=== PATIENT | male | born 1955 | race Caucasian/White ===

== ENCOUNTER 2016-09-01 11:37 | Emergency (ER) | payer OTHER ==
[2016-09-01 12:53] LABS: BASOPHILS 0.2 % (0.0-2.0); EOSINOPHILS 1.5 % (0-7); HEMATOCRIT 41.2 % (42.0-54.0); HEMOGLOBIN 14.5 g/dL (13.5-17.5); IMMATURE GRANULOCYTES 0.1 % (0-5); LYMPHOCYTES 13.7 % (15-50); MCH 33.6 pg (26.0-34.0); MCHC 35.2 g/dL (31.0-37.0); MCV 95.6 fL (80.0-100.0); MEAN PLATELET VOLUME 9.8 fL (7.4-10.4); MONOCYTES 7.5 % (2-11); PLATELET COUNT 206 10x3/uL (130-400); RBC 4.31 10x6/uL (4.20-6.10); RDW 11.5 % (11.5-14.5); WBC 8.2 10x3/uL (4.8-10.8)
[2016-09-01 13:14] LABS: ALBUMIN 3.8 g/dL (3.4-5.0); ANION GAP 14.8 mmol/L (8-16); BILIRUBIN - TOTAL 0.53 mg/dL (0.2-1.3); CALCIUM 8.7 mg/dL (8.5-10.1); CARBON DIOXIDE 25.8 mmol/L (21.0-32.0); CREATININE - SERUM 1.2 mg/dL (0.6-1.3); POTASSIUM - SERUM 3.6 mmol/L (3.5-5.1)
[2016-09-01 14:59] LABS: APPEARANCE CLEAR (CLEAR); BILIRUBIN NEGATIVE (NEGATIVE); COLOR YELLOW (YELLOW); GLUCOSE NEGATIVE (NEGATIVE); KETONE NEGATIVE (NEGATIVE); LEUKOCYTE ESTERASE TRACE (NEGATIVE); NITRITE NEGATIVE (NEGATIVE); PROTEIN NEGATIVE (NEGATIVE); SPECIFIC GRAVITY 1.015 (1.005-1.020); UROBILINOGEN NORMAL (NORMAL)
[2016-09-01 15:03] LABS: BACTERIA FEW /hpf (NONE SEEN); EPITHELIAL CELLS 0-5 /hpf (0-5); MUCUS <1+ /lpf (NONE SEEN); RED CELLS - URINE NONE SEEN /hpf (0-5); WHITE CELLS - URINE 0-5 /hpf (0-5)
[2016-09-01 15:04] LABS: HYALINE CAST OCC /lpf (NONE SEEN)
== END 2016-09-01 15:52 | disposition home or self-care (01) ==
LOC: D.ER 11:37
PROVIDERS: Nurse Practitioner Family
DX: M54.5 Low back pain (principal); M54.32 Sciatica, left side; M62.830 Muscle spasm of back; S29.012A Strain of muscle and tendon of back wall of thorax, initial encounter; X58.XXXA Exposure to other specified factors, initial encounter; Y93.9 Activity, unspecified; Y92.019 Unspecified place in single-family (private) house as the place of occurrence of the external cause

== ENCOUNTER → 2017-07-09 15:52 | Outpatient (CLI) | payer OTHER | END | disposition home or self-care (01) | LOC: D.CT 15:52 | DX: J15.8 Pneumonia due to other specified bacteria (principal) ==

== ENCOUNTER → 2018-09-02 15:25 | Outpatient (CLI) | payer OTHER | END | disposition home or self-care (01) | LOC: D.CT 15:25 | PROVIDERS: ATTEND Family Medicine | DX: J18.1 Lobar pneumonia, unspecified organism (principal) ==

== ENCOUNTER → 2018-09-23 12:29 | Outpatient (CLI) | payer MEDICARE | END | disposition home or self-care (01) | LOC: D.RAD 12:29 | PROVIDERS: ATTEND Family Medicine | DX: K22.2 Esophageal obstruction (principal) ==

== ENCOUNTER → 2018-09-26 13:28 | Outpatient (CLI) | payer MEDICARE, OTHER ==
--- NOTE | 2018-09-28 14:39 | EC ---
PATIENT:PATRIA POLLOCK DATE OF SERVICE: 09/26/18 SEX: M MEDICAL RECORD: [id number] DATE OF : 51 LOCATION:[facility] AGE OF PATIENT: 63 ADMISSION DATE: 09/26/18 REFERRING PHYSICIAN: INTERPRETING PHYSICIAN: PHYLLIS FALK MD ECHOCARDIOGRAM REPORT ECHO CHARGES 4 ECHO COMPLETE Date: 09/26/18 CLINICAL DIAGNOSIS: DIZZINESS/BRADYCARDIA H/O HTN ECHOCARDIOGRAPHIC MEASUREMENTS (adult normal given) AC root (d.<3.7cm) 3.5 cm LV Septum d (<1.2 cm> 1.4 cm Valve Excursion 2.2 cm LV Septum (systole) 2.1 cm Left Atria (s.<4.0cm> 4.7 cm LVPW d(<1.2cm) 1.4 cm RV (d.<2.3cm) 3.0 cm LVPW (sytole) 2.1 cm LV diastole(<5.6CM) 6.0 cm MV E-F(>70mm/sec) cm LV systole 3.8 cm LVOT Diameter 2.0 cm MV exc.(>10mm) cm Est.ejection fraction (50-75%) % DOPPLER: LVIT cm/sec A 47.0 cm/sec E 59.0 cm/sec LA cm/sec RVSP 31.2 mmHg LVOT 113 cm/sec AOP1/2T m/s Asc. Ao 140 cm/sec RVOT 49.0 cm/sec RA cm/sec PA 113 cm/sec AV Gradient Peak 7.9 mmHg AV Mean 4.2 mmHg AV Area 2.1 cm MV Gradient Peak 2.6 mmHg MV Mean 0.43 mmHg MV Area cm COMMENTS: OP - HC Customs Entry Clerk: Odette BOONEOE Manager Cleaning: 1 Dr. Falk TAPE# PACS Pericardial Effusion N DATE OF SERVICE: 09/26/2018 FINDINGS: 1. Left ventricular chamber size is mildly dilated. Left ventricular systolic function is preserved at 55%. 2. Left atrium is dilated at 4.7 cm. Right atrium and right ventricular chamber sizes are as well mildly dilated. 3. Valvular structures have normal structure and motion. 4. Doppler interrogation reveals [id number] aortic insufficiency, moderate mitral regurgitation, and mild tricuspid regurgitation. No other ECHOCARDIOGRAM REPORT [id number] PATRIA POLLOCK valvular insufficiency or stenosis. Pulmonary systolic pressure is estimated at 31 mmHg. 5. No evidence of pericardial effusion or left ventricular thrombus. TRANSINT:[id number] Voice Confirmation ID: [id number] DOCUMENT ID: [id number] PHYLLIS FALK MD at 1439 CC: [id number] DICTATION DATE: 09/26/18 1534 HOUSE CLEANER SUPERVISOR: 09/26/18 2252 DEP CLI 09/26/18 [place] [id number] [place] [address]
== END | disposition home or self-care (01) ==
LOC: D.HCCARDIO 13:28
PROVIDERS: ATTEND Internal Medicine Interventional Cardiology
DX: I10 Essential (primary) hypertension (principal)

== ENCOUNTER → 2018-11-22 08:15 | Day surgery (SDC) | payer MEDICARE ==
[2018-11-21 11:35] LABS: HEMATOCRIT 42.7 % (42.0-54.0); MCH 33.6 pg (26.0-34.0); MCHC 35.1 g/dL (31.0-37.0); MCV 95.7 fL (80.0-100.0); MEAN PLATELET VOLUME 10.4 fL (7.4-10.4); RBC 4.46 10x6/uL (4.20-6.10); RDW 12.4 % (11.5-14.5); WBC 5.7 10x3/uL (4.8-10.8)
[~2018-11-22 08:15] MED LIST: AVAPRO150 MG PO; BACTRIM 400-801 TAB PO; BAYER CHEWABLE81 MG PO; CARAFATE1 G PO; ZYRTEC10 MG PO
[2018-11-22 09:07] VITALS: BP 126/75; BMI 29.1
--- NOTE | 2018-11-22 12:23 | OP ---
PATIENT NAME: PATRIA POLLOCK MEDICAL RECORD: [id number] :51 LOCATION:.[facility] ADMISSION DATE: SURGEON: HONG NELSON MD DATE OF OPERATION: 11/22/2018 SURGEON: Hong Nelson MD ANESTHESIA: TIVA by Dario Wolfe CRNA DIAGNOSES: Elevated PSA of 4.37, bladder outlet obstruction. PROCEDURES: Cystoscopy, transrectal ultrasound, and prostate biopsy. FINDINGS: On cystoscopy, bilateral lateral lobe obstruction of the prostate and small median lobe. Heavily trabeculated bladder with cellules. No bladder tumors. On transrectal ultrasound, 75-gram prostate with intraprostatic stones. No hypoechoic areas. SPECIMEN: Prostate biopsy cores. BLOOD LOSS: Minimal. CLINICAL HISTORY: This is a 63-year-old male who was referred for an elevated PSA of 4.37 on 09/28/2018. His previous PSA was 2 years ago and it was in the 2 range. He does have some voiding symptoms including nocturia times 1 and slow urinary stream. He has some urgency without urge incontinence. His IPSS score is 13, quality of life score is 3, and postvoid residual is 0 mL. He comes today to have a prostate biopsy performed as well as cystoscopy to evaluate his prostatic urethra. He has no drug allergies. He was given Ancef on-call to the OR. DESCRIPTION OF PROCEDURE: The patient was given IV sedation. He was placed in lithotomy position and prepped and draped. A 17-Hebrew cystoscope with 30-degree lens was used for visualization. He has normal penile urethra. The prostatic urethra shows bilateral lateral lobe obstruction. There is a small median lobe present. Going into the bladder, the bladder was heavily trabeculated. There were no bladder tumors seen. Single ureteral orifices were seen on each side. The bladder was then emptied through the cystoscope sheath and the scope was removed. We then introduced the transrectal ultrasound probe. Prostate size measurements were obtained. He has a very large prostate of 75 grams estimated size. Intraprostatic stones were also seen. Sextant biopsies were obtained with at least 3 cores from each sextant. Once all the cores were obtained, the procedure was terminated. I will see the patient in follow up this Wednesday to review the pathology results with him. TRANSINT:[id number] Voice Confirmation ID: [id number] DOCUMENT ID: [id number] OPERATIVE REPORT [id number] PATRIA POLLOCK ROBERT S MD at 1223 CC: [id number] DICTATION DATE: 11/22/18 1142 ROUTER MACHINE OPERATOR: 11/22/18 1158 PRE [facility] [address] [place] [address]
--- NOTE | 2018-11-22 12:31 | NUR ---
1230 PT VOIDED MODERATE AMT. SCANT AMT OF BLOOD NOTED IN TOILET
--- NOTE | 2018-11-22 13:54 | NUR ---
1315 UP TO RESTROOM. UNABLE TO VOID. CONTINUES TO DRINK. Mariana Miller.NCarly 1345 VOIDED 200ML URINE WITHOUT DIFFICULTY. DRESSING. Mariana CHANG R.N.
--- NOTE | 2018-11-22 14:05 | NUR ---
1400 DRESSED, AWAKE & ALERT. GVIEN DISCHARGE INFORMATION INCLUDING: MED REC WITH NOTE TO HOLD ASA TILL TOMORROW, RTC APPT., [facility] D/C INSTRUCTIONS, & CYSTOSCOPY & PROSTATE BIOPSY D/C INSTRUCTIONS. PT & VOICED UNDERSTANDING. TO PRIVATE CAR PER WHEELCHAIR BY OPS NURSEANASTASIYA. HOME WITH KRISHNA RIVASSammie CHANG R.N.
== END | disposition home or self-care (01) ==
LOC: D.OPS 07:30 → D.PAN 08:10 → D.OPS 08:10 → D.PAN 08:30 → D.OPS 08:30 → D.PAN 08:50 → D.OPS 09:00
PROVIDERS: Anesthesiology; ATTEND Urology
DX: C61 Malignant neoplasm of prostate (principal); N41.1 Chronic prostatitis; N40.1 Benign prostatic hyperplasia with lower urinary tract symptoms; N13.8 Other obstructive and reflux uropathy; N32.89 Other specified disorders of bladder; N42.0 Calculus of prostate; Z01.812 Encounter for preprocedural laboratory examination

== ENCOUNTER 2018-12-29 07:50 | Day surgery (SDC) | payer MEDICARE ==
[2018-12-28 09:13] LABS: BASOPHILS 0.4 % (0-2); EOSINOPHILS 5.6 % (0-7); HEMATOCRIT 45.3 % (42.0-54.0); HEMOGLOBIN 16.1 g/dL (13.5-17.5); IMMATURE GRANULOCYTES 0.3 % (0-5); LYMPHOCYTES 27.9 % (15-50); MCH 33.9 pg (26.0-34.0); MCHC 35.5 g/dL (31.0-37.0); MCV 95.4 fL (80.0-100.0); MEAN PLATELET VOLUME 9.6 fL (7.4-10.4); NEUTROPHILS 50.8 % (40-80); PLATELET COUNT 200 10x3/uL (130-400); RBC 4.75 10x6/uL (4.20-6.10); RDW 12.3 % (11.5-14.5)
[2018-12-28 09:25] LABS: APTT 25.7 SECONDS (22.8-39.4); INR 0.98 (0.85-1.17); PROTIME 12.5 SECONDS (11.6-15.0)
[~2018-12-29] VITALS: Ht 182.9 cm; Wt 99.8 kg
[2018-12-29 08:23] VITALS: BP 121/70; Ht 182.9 cm; Wt 99.8 kg
--- NOTE | 2018-12-29 11:40 | NUR ---
REC'D FROM SURGERY. FAMILY AT BEDSIDE. RELATES FEELS IF HE COULD URINATE. JUICE BROUGHT TO PATIENT.
--- NOTE | 2018-12-29 11:50 | NUR ---
AMBULATED TO THE BATHROOM AND VOIDED WITHOUT DIFFICULTY.
--- NOTE | 2018-12-29 12:00 | NUR ---
FL DIET SERVED TO PATIENT.
--- NOTE | 2018-12-29 12:17 | OP ---
PATIENT NAME: PATRIA POLLOCK MEDICAL RECORD: [id number] :51 LOCATION:.[facility] ADMISSION DATE: SURGEON: HONG NELSON MD DATE OF OPERATION: 12/29/2018 SURGEON: Hong Nelson MD ANESTHESIA: TIVA by Arnaud Segal CRNA DIAGNOSES: Prostate cancer, stage T1c. A 75-gram prostate. IPSS score is 13. Quality of life score is 3. Postvoid residual is 0 mL. Bladder outlet obstruction. PROCEDURE: UroLift times 5 units deployed, 4 held. FINDINGS: Bilateral lateral lobe obstruction. Minimum median lobe. There are single ureteral orifices bilaterally. The bladder was trabeculated, but there were no bladder tumors seen. CLINICAL HISTORY: This is a 63-year-old male who was diagnosed with prostate cancer. He has [place] 3+3 grade I cancer in the right base. His Prolaris score is low and he is on observation. He does continue to have obstructive voiding symptoms. He comes today to have the UroLift procedure done. He is not allergic to any medications. He was given Ancef on-call to the OR. DESCRIPTION OF PROCEDURE: The patient was given IV sedation. He was then placed into lithotomy position and prepped and draped. UroLift scope was introduced. The findings are as outlined above. At 1.5 cm distal to the bladder neck, we placed at the anterolateral sulcus of the lateral lobes, one unit on each side. When I placed the unit on the left side, the first time it struck bone. I could not recover the unit and this unit was discarded. I had to fire a second unit in this location on the left anterolateral sulcus near the bladder neck and this one did hold. This opened up the prostatic urethra greatly. We then fired 2 more units at the anterolateral sulcus near the verumontanum. One unit was placed on each side without any incident. At the end of the procedure, the prostatic urethra was nicely opened. We left the bladder partly full for a voiding trial. I will see the patient in follow up in one month's time. TRANSINT:[id number] Voice Confirmation ID: [id number] DOCUMENT ID: [id number] HONG NELSON MD at 9373 CC: [id number] DICTATION DATE: 12/29/18 1525 BARREL BUILDER: 12/29/18 1213 REG [facility] [address] [place] [id number]
--- NOTE | 2018-12-29 12:45 | NUR ---
TOLERATED FL DIET. IV DC'D WITH CATHETER INTACT.
--- NOTE | 2018-12-29 13:00 | NUR ---
WRITTEN AND VERBAL DC INST. GIVEN TO PT. VERBALIZED UNDERSTANDING.
--- NOTE | 2018-12-29 13:20 | NUR ---
DC'D HOME WITH FAMILY VIA PRIVATE VEHICLE. STABLE AT TIME OF DC.
== END 2018-12-29 13:20 | disposition home or self-care (01) ==
LOC: D.OPS 07:50 → D.PAN 08:15 → D.OPS 09:30 → D.PAN 09:45 → D.OPS 10:00 → D.PAN 10:15 → D.OPS 10:15
PROVIDERS: Anesthesiology; ATTEND Urology
DX: N40.1 Benign prostatic hyperplasia with lower urinary tract symptoms (principal); N13.8 Other obstructive and reflux uropathy; N32.89 Other specified disorders of bladder; Z01.812 Encounter for preprocedural laboratory examination

== ENCOUNTER → 2019-02-08 08:20 | Outpatient (CLI) | payer MEDICARE ==
[2018-12-29 08:23] VITALS: BMI 29.9
== END | disposition home or self-care (01) ==
LOC: D.CT 08:20
PROVIDERS: ATTEND Internal Medicine Pulmonary Disease
DX: R93.89 Abnormal findings on diagnostic imaging of other specified body structures (principal)

== ENCOUNTER → 2019-03-08 09:13 | Outpatient (CLI) | payer MEDICARE ==
[2018-12-29 08:23] VITALS: BMI 29.9
== END | disposition home or self-care (01) ==
LOC: D.LAB 09:13
PROVIDERS: ATTEND Urology
DX: C61 Malignant neoplasm of prostate (principal)

== ENCOUNTER 2019-04-13 11:07 | Outpatient (CLI) | payer MEDICARE ==
[~2019-04-13] VITALS: Ht 182.9 cm; Wt 100.0 kg
--- NOTE | ~2019-04-13 | HEMODYNAMI ---
PATIENT:PATRIA POLLOCK MEDICAL RECORD: [id number] : 51 LOCATION:[place] [address] ADMISSION DATE: 04/13/19 Generatedon:04/13/201914:02 Patient name: PATRIA POLLOCK Patient #: [id number] SSN: [id number] : 1955 Date of study: 04/13/2019 Page: Of Hemodynamic Procedure Report Patient Data Patient Demographics First Name: PATRIA Gender: Male Last Name: PHILL : 1955 Middle Initial: JOHN Age: 63 year(s) Patient #: [id number] Race: Unknown SSN: [id number] Additional ID: [id number] Contact details [address]: [address] [place] [address] State: [place] City: [place] Zip code: [address] Past Medical History Allergies: No known allergies Admission Admission Data Admission Date: 04/13/2019 Admission Time: 13:40 Room #: [facility] Insurance Payor: Medicare Height (in.): 72 BSA: 2.22 (m2) Height (cm.): 182.88 BMI: 29.84 (kg/m2) Weight (lbs.): 220 Weight (kg.): 99.79 Procedure Procedure Types Cath Procedure Diagnostic Procedure PPM/ICD PPM Dual Implant Procedure Description Procedure Date Procedure Date: 04/13/2019 Procedure Start Time: 13:20 Procedure Staff Name Function Daniel Kc MD Performing Physician Ama Patterson RT Monitor Kamini Bianchi RN Nurse Charlette Rivera RT Scrub Hong Carlisle MD Assisting physician Procedure Data Cath Procedure Fluoroscopy Diagnostic fluoroscopy Total fluoroscopy Time: 0.5 time: 0.5 min min Diagnostic fluoroscopy Total fluoroscopy dose: 213 dose: 213 mGy mGy Estimated blood loss: 10 ml Procedure Complications No complications Procedure Medications Medication Administration Route Dosage 0.9% NaCl I.V. 100 ml/hr Oxygen etCO2 Nasal cannula 2 l/min Lidocaine 1% added to field 20 Ancef (1Gm/50ml NS) I.V.P.B 1 g Ancef Irrigation Topical 1 g (1gm/500ml NS) Bupivacaine 0.5% added to field 10 ml Versed I.V. 2 mg Fentanyl I.V. 100 mcg Hemodynamics Rest BSA: 2.22 (m2) O2 Consumption: Estimated: 301.92 (ml/min) O2 Consumption indexed : Estimated:136 (ml/min/m) Pre Cath Intra NCS Post Cath Vital Signs Time Heart Resp SPO2 etCO2 NIBP (mmHg) Rhythm Pain Sedation Rate (ipm) (%) (mmHg) Status Level (bpm) 12:56:25 53 17 96 28.7 149/76(110) SB 0 (11) 10(A) , No pain 13:01:24 56 24 97 18.9 Measuring SB 0 (11) 10(A) , No pain 13:01:32 56 25 97 28 145/79(102) SB 0 (11) 10(A) , No pain 13:05:48 49 19 98 29.5 139/72(103) SB 0 (11) 10(A) , No pain 13:09:50 57 14 96 14.4 127/79(101) SB 0 (11) 10(A) , No pain 13:13:58 50 17 98 20.4 137/76(100) SB 0 (11) 10(A) , No pain 13:18:12 49 16 98 34 128/68(93) SB 0 (11) 10(A) , No pain 13:22:21 49 22 95 31.8 128/71(92) SB 0 (11) 10(A) , No pain 13:27:21 50 18 97 32.5 Measuring SB 0 (11) 10(A) , No pain 13:28:40 50 18 96 31.8 123/83(104) SB 0 (11) 10(A) , No pain 13:33:31 53 17 97 33.3 127/70(83) SB 0 (11) 10(A) , No pain 13:38:30 49 14 98 33.3 Measuring SB 0 (11) 10(A) , No pain 13:38:45 48 14 98 33.3 130/73(94) SB 0 (11) 10(A) , No pain 13:42:50 79 15 99 31.8 133/84(110) SB 0 (11) 10(A) , No pain 13:46:58 59 15 98 31.8 133/81(97) Paced 0 (11) 10(A) , No pain 13:51:08 59 16 98 29.5 133/78(101) Paced 0 (11) 10(A) , No pain 13:55:18 59 16 98 30.2 133/80(99) Paced 0 (11) 10(A) , No pain Medications Time Medication Route Dose Verified Delivered Reason Notes Effectiv eness by by 12:55:25 0.9% NaCl I.V. 100 Daniel Mckenziea used for ml/hr [facility] Bianchi procedure MD SANTIAGO 12:55:31 Oxygen etCO2 2 Daniel Lindquistyla used for Nasal l/min [facility] Bian[facility] procedure cannula MD SANTIAGO 12:55:42 Lidocaine added 20ml Hong Pitts for local 1% to vial Breving Breving anesthetic field MD TAYLOR 12:55:54 Ancef I.V.P.B 1 g Hong Suárez used for (1Gm/50ml Breving Arias procedure NS) MD SANTIAGO 12:56:02 Ancef Topical 1 g Hong Pitts used for Irrigation Breving Breving procedure (1gm/500ml MD TAYLOR NS) 13:09:55 Bupivacaine added 10 ml Hong Pitts for local 0.5% to Breving Breving anesthetic field MD TAYLOR 13:19:14 Versed I.V. 2 mg Daniel Lindquistyla for [facility] Zach Bianchi sedation MD SANTIAGO 13:19:20 Fentanyl I.V. 100 Daniel Lindquistyla for mcg [facility] Zach Bianchi sedation MD SANTIAGOchiropractic doctor Log Time Note 12:28:49 Insurance Payor : Medicare 12:39:04 Procedure Status Elective Heart Cath (OP). 12:39:08 Kamini Bianchi RN sent for patient. Start room use. 12:39:10 Time tracking: Regular hours (M-F 7:00 - 5:00) 12:39:16 Plan of Care:Hemodynamics will remain stable., Cardiac rhythm will remain stable., Comfort level will be maintained., Respiratory function will remain adequate., Patient/ family verbilizes understanding of procedure., Procedure tolerated without complication., Recovers from procedure without complications.. 12:39:39 Patient received from Pre/Post Procedure Room to [facility] 3 Alert and oriented. Tansferred to table in Supine position. 12:41:54 Patient Height : 72 inches 12:41:58 Patient Weight : 220 lbs 12:42:05 H&P Date Dictated: 04/13/2019 Within 30 days and on chart.. 12:55:16 Vital chart was started 12:55:25 0.9% NaCl 100 ml/hr I.V. was administered by Kamini Bianchi RN; used for procedure; Verbal order read back and verified. 12:55:31 Oxygen 2 l/min etCO2 Nasal cannula was administered by Kamini Bianchi RN; used for procedure; Verbal order read back and verified. 12:55:42 Lidocaine 1% 20ml vial added to field was administered by Hong Carlisle MD; for local anesthetic; Verbal order read back and verified. 12:55:54 Ancef (1Gm/50ml NS) 1 g I.V.P.B was administered by Kamini Bianchi RN; used for procedure; Verbal order read back and verified. 12:56:02 Ancef Irrigation (1gm/500ml NS) 1 g Topical was administered by Hong Carlisle MD; used for procedure; Verbal order read back and verified. 13:05:08 Pre-op teaching completed and patient verbalized understanding. 13:05:11 Family in patients room. 13:05:13 Patient NPO since Midnight. 13:05:20 Patient allergic to No known allergies 13:05:24 Is the patient allergic to Iodine/contrast media? N/A. 13:05:27 Was the patient premedicated? Yes 13:05:28 Is patient on blood thinner?No 13:05:49 Patient diabetic? No. 13:05:52 Snore? Yes 13:05:53 Sleep apnea? No 13:05:58 Dentures? No ? 13:06:08 IV patent on arrival in left forearm with 0.9% NaCl at [facility]. 13:06:28 Lab results completed and on chart. 13:06:37 Left chest area was prepped with dura-prep and draped in sterile fashion 13:06:51 Alarms reviewed by R. N. 13:06:52 Sharps counted by scrub and verified by R.N. 13:06:56 Physician paged 13:08:24 Medtronic business process representative ALISSA BOONEOE present for procedure. 13:09:36 Pre sharps counted by scrub and verified by RN: Sutures: 14; Sponges: 5; Stick needles: 2; Skin needles: 2; Blade: 1; Cautery: 1 13:09:44 Grounding pad site Left thigh. 13:09:45 Grounding pad site free from injury. 13:09:55 Bupivacaine 0.5% 10 ml added to field was administered by Hong Carlisle MD; for local anesthetic; Verbal order read back and verified. 13:12:52 Medtronic 4574-45 PPM Lead opened to sterile field. 13:12:53 Medtronic 4074-52 PPM Lead opened to sterile field. 13:12:[address] Generator [id number] opened to sterile field. 13:12:54 Mepilex Dressing ([id number]) opened to sterile field. 13:12:55 3-0 Vicryl Multipack [id number] opened to sterile field. 13:12:56 3-0 Vicryl Single Pack [id number] opened to sterile field. 13:12:56 2-0 Ticron Multipack ([id number]) opened to sterile field. 13:12:56 Immobilizer Sling Medium opened to sterile field. 13:17:21 Physician arrived 13:17:22 --------ALL STOP TIME OUT------ 13:17:27 Final Timeout: patient, procedure, and site verified with staff and physician. All members of the team are in agreement. 13:17:43 Left chest site verified by team. 13:17:50 Fire Safety Assessment: A--An alcohol-based skin anteseptic being used preoperatively., C--Open oxygen or nitrous oxide is being used., D--An ESU, laser, or fiber-optic light is being used. 13:17:57 Physical assessment completed. ASA score P 3 - A patient with severe systemic disease as per Daniel Kc MD. 13:18:03 Sedation plan: IV Moderate Sedation Medication:Versed, Fentanyl 13:19:14 Versed 2 mg I.V. was administered by Kamini Bianchi RN; for sedation; Verbal order read back and verified. 13:19:20 Fentanyl 100 mcg I.V. was administered by Kamini Bianchi RN; for sedation; Verbal order read back and verified. 13:20:42 Lidocaine 1% w/epi was administered to left subclavicular area by Hong Carlisle MD . 13:20:45 Incision made to left subclavicular area. 13:22:49 Generator pocket made/opened. 13:29:09 Use device set COLT PPM 13:29:15 Cautery Pushbutton Pencil opened to sterile field. 13:29:22 Cautery Tip Mandarin Chinese Teacher opened to sterile field. 13:29:53 Left subclavian vein accessed with 9Fr Peel Away Sheath. 13:29:58 Ventricular lead inserted and advanced. 13:30:04 Left subclavian vein accessed with 7Fr Peel Away Sheath. 13:30:12 Atrial lead inserted and advanced. 13:30:15 Peel-a-way sheath was split and removed. 13:30:16 Peel-a-way sheath was split and removed. 13:30:26 Ventricular lead tested. 13:30:29 Atrial lead tested. 13:38:08 PPM Dual was attached to lead(s) and inserted into pocket. 13:38:13 PPM Dual was inserted subcutaneously to left chest. 13:38:23 Device pocket was irrigated with Ancef. 13:38:34 Ventricular lead attachment was completed with 2-0 ticron. 13:38:38 Atrial lead attachment was completed with 2-0 ticron. 13:38:39 Generator was sutured in place with 2-0 ticron. 13:39:07 Subcutaneous closure was completed with 3-0 vicryl plus. 13:39:13 Skin closure was completed with 3-0 vicryl plus. 13:41:30 Parameters-- Generator: Mode: aair=DDDR. Lower Rate: 60bpm. Upper Rate: 120bpm. 13:42:24 Parameters--Ventricular P/R Wave: 12mV. Current: .2mA; Threshold: .2V; Impedence: 1165OHMS. 13:42:45 Parameters--Atrial P/R Wave: 3.0mV. Current: .6mA; Threshold: .4V; Impedence: 603OHMS. 13:42:53 Lt Chest incision was dressed with Mepilex dressing. 13:42:54 PRESSURE DRESSING 13:53:33 Procedure ended.(Physican Out) 13:53:44 Fluoroscopy time 00.50 minutes. 13:53:49 Flurop Dose total: 213 13:53:49 Fluoroscopy dose: 213 mGy 13:53:53 Dose Area Product 2510 mGy/cm. 13:53:57 Sharps counted by scrub and verified by R.N. 13:54:23 Post sharps counted by scrub and verified by RN: Sutures: 14; Sponges: 5; Stick needles: 2; Skin needles: 2; Blade: 1; Cautery: 1 13:54:44 Post-op/insertion site Left Subclavian vein dressed using a Mepilex dressing. 13:54:48 Post Procedure Pulses reassessed and unchanged 13:55:23 Post-procedure physical assessment completed. ASA score P 3 - A patient with severe systemic disease as per Daniel Kc MD. 13:55:31 Post procedure rhythm: paced 13:55:35 Estimated blood loss: 10 ml 13:55:38 Post procedure instruction explained to patient.Patient verbalizes understanding. 13:56:02 Procedure and supply charges have been captured, reviewed, submitted and are correct. 13:56:21 Procedure Complication : No complications 13:57:13 Vital chart was stopped 13:57:16 Operative report dictated upon procedure completion. 13:57:17 See physician's report for complete and final results. 13:57:19 Report given to Med II. 13:57:24 Patient transfered to Med II with Bed. 13:57:29 End room use (Document Last) Device Usage Item Name Manufacture Quantity Catalog Hospital Part Current Minima l Lot# / Number Charge Number Stock Stock Serial# Code Medtronic Medtronic 1 4574-45 [id number] [id number] 5 4574-45 PPM [id number] Lead EXP .04-19-19 Medtronic Medtronic 1 4074-52 386497 [id number] 009915 5 4074-52 PPM [id number] Lead EXP 12/26/2020 Medtronic Medtronic 1 [id number] [id number] [id number] 5 FREYA XT [id number] Generator EXP [id number] .08/11/2020 Mepilex Cardinal 1 815571 723557 458929 [id number] 5 Dressing Health (619280) 3-0 Vicryl Ethicon 1 [id number] 432136 105364 [id number] 5 Multipack [id number] 3-0 Vicryl Ethicon 1 [id number] 697990 018938 268696 5 Single Pack [id number] 2-0 Ticron Ethicon 5 [id number] 688795 56231 591535 5 Multipack ([id number]) Immobilizer Cardinal 1 71-90015 932698 205986 781033 5 Sling [facility] Cautery Microtek 1 [id number] 491539 64742 843589 5 Push[employer] Pencil Cautery Tip Microtek 1 [id number] 759491 937308 635350 5 Mandarin Chinese TeacherProginet Inc. Signature Audit [place] Stage Time Signature Unsigned Intra-Procedure 04/13/2019 Ama Patterson 2:02:02 PM RT(R) [place] [id number] [place] [id number]
[2019-04-13] MEDS ORDERED: OMEPRAZOLE20 M1 PO (11:26)
[2019-04-13 11:41] VITALS: BP 136/80; BMI 29.9
[2019-04-13 12:30] LABS: CALC OSMOLALITY 280 mosm/kg (275-300); CALCIUM 8.5 mg/dL (8.5-10.1); CARBON DIOXIDE 25.1 mmol/L (21.0-32.0); CHLORIDE - SERUM 105 mmol/L (98-107); GLUCOSE 105 mg/dL (74-106); POTASSIUM - SERUM 3.9 mmol/L (3.5-5.1); SODIUM 139 mmol/L (136-145); UREA NITROGEN 20 mg/dL (7-18); eGFR NON AFRICAN AMERICAN 80 mL/min (90-120)
[2019-04-13 12:37] LABS: HEMATOCRIT 42.1 % (42.0-54.0); HEMOGLOBIN 14.7 g/dL (13.5-17.5); MCH 34.3 pg (26.0-34.0); MCHC 34.9 g/dL (31.0-37.0); MCV 98.4 fL (80.0-100.0); MEAN PLATELET VOLUME 10.3 fL (7.4-10.4); RBC 4.28 10x6/uL (4.20-6.10); WBC 7.9 10x3/uL (4.8-10.8)
[2019-04-13 12:44] LABS: APTT 28.1 SECONDS (22.8-39.4); INR 1.05 (0.85-1.17); PROTIME 13.2 SECONDS (11.6-15.0)
--- NOTE | 2019-04-13 14:27 | NUR ---
RECIVED FROM SENIOR [employer] NET DEVELOPER PER BED TO ROOM 2119. FAMILY AT SIDE. LT CHEST DRSG C/D/I. SLING TO LT ARM. PACED ON CM
[2019-04-13 15:00] VITALS: BP 136/80; Ht 182.9 cm; Wt 100.0 kg
--- NOTE | 2019-04-13 16:44 | NUR ---
WITHOUT CHANGES OR DISTRESS NOTED AT THIS TIME.
[2019-04-13 18:04] VITALS: BP 124/65
[2019-04-13 20:00] VITALS: BP 113/58
--- NOTE | 2019-04-13 20:00 | NUR ---
RECIEVED BEDSIDE REPORT. PT AOX4, VSS, NO S/S OF DISTRESS. SPOUSE @BEDSIDE. LEFT ARM SLING INTACT AND LEFT CHEST DRSNG C/D/I. PT DENIES ANY PAIN AT THIS TIME. PT DENIES ANY FURTHER NEEDS AT THIS TIME. WILL CPOC.
[2019-04-14] VITALS: BP 122/58
[2019-04-14 04:00] VITALS: BP 130/73
--- NOTE | 2019-04-14 06:06 | NUR ---
ASSESSMENT DONE. DENIES NEEDS
[2019-04-14 07:29] VITALS: BP 122/78
--- NOTE | 2019-04-14 08:58 | NUR ---
I have reviewed this patient and I concur with the Shift Assessment completed by the Licensed Practical Nurse today this shift.
--- NOTE | 2019-04-14 10:37 | NUR ---
DC GIVEN TO PT
--- NOTE | 2019-04-14 11:37 | NUR ---
DC HOME PER PERSONAL CAR
--- NOTE | 2019-04-14 12:27 | OP ---
PATIENT NAME: PATRIA POLLOCK MEDICAL RECORD: [id number] :51 LOCATION:D.M2 D.2120 ADMISSION DATE:04/13/19 SURGEON: AMADOR FREY MD DATE OF OPERATION: 04/13/2019 SURGEON: Hong Carlisle MD INDICATION: Sick sinus syndrome with ana maría escape rhythms. DESCRIPTION OF PROCEDURE: After left subclavian was cannulated via modified Seldinger technique, first under fluoroscopic guidance, I placed the RV lead in the RV apex without difficulty. After adequate thresholds and R waves were obtained, the right atrial lead was then passed under fluoroscopic guidance. The right atrial lead was passed into the right atrial appendage without difficulty. After adequate P waves and thresholds were obtained, leads were attached to the appropriate poles of the generator and the pocket was closed via Dr. Carlisle. IMPRESSION: Successful lead portion of permanent pacemaker placement. ESTIMATED BLOOD LOSS: Minimal. DISPOSITION: To the floor, stable. COMPLICATIONS: None. TRANSINT:[id number] Voice Confirmation ID: [id number] DOCUMENT ID: [id number] AMADOR FREY MD at 1227 CC: [id number] DICTATION DATE: 04/13/19 1341 ENDLESS BELT FINISHER: 04/13/19 1400 DIS IN 04/14/19 [facility] [address] [place] [address]
--- NOTE | 2019-04-14 19:33 | OP ---
PATIENT NAME: PATRIA POLLOCK MEDICAL RECORD: [id number] :51 LOCATION:D.M2 D.2120 ADMISSION DATE:04/13/19 SURGEON: MOHIT CASIANO MD DATE OF OPERATION: 04/13/2019 PREOPERATIVE DIAGNOSIS: Sick sinus syndrome with ana maría escape. POSTOPERATIVE DIAGNOSIS: Sick sinus syndrome with ana maría escape. PROCEDURE: Creation of left infraclavicular anterior-superior port pocket with suturing down atrial and ventricular leads and then placing the pacemaker generator in the pocket and suturing it in place. This is a cosurgeon case. Please refer to Dr. Daniel Ramon's note. HOTEL MAINTENANCE TECHNICIAN: Daniel Ramon MD GENERAL SURGEON: Mohit Casiano MD BLOOD LOSS: Minimal. ANESTHESIA: Local with IV sedation. COMPLICATIONS: None. The risks, possible complications, and alternatives to the procedure were explained to the patient. He elects to proceed. OPERATIVE COURSE: The patient was conveyed to the cardiac catheterization laboratory on 04/13/2019. IV sedation was induced by the nursing staff. The left chest was sterilely prepped and draped. Local anesthetic was used to infiltrate the skin and subcutaneous tissues inferior to the left clavicle. A transverse incision was accomplished. I dissected out the pectoralis fascia. A subcutaneous pocket was created in a caudad direction. Through the pocket, I accessed the left subclavian vein easily. A guidewire passed easily. A 9-Serbian dilator sheath was advanced under fluoroscopy. The dilator was removed. Through the sheath, the ventricular lead was advanced. The Peel-Away sheath was then removed. Dr. Daniel Ramon positioned the lead. Appropriate thresholds were obtained. The lead was then sutured in place with 2-0 TiCron times 2. Over the secondary wire, a 7-Serbian dilator sheath was advanced. The dilator and wire were removed. Through the sheath, the atrial lead was advanced. It was positioned by Dr. Daniel Ramon and appropriate thresholds were obtained. The ventricular lead was confirmed and placed in the ventricular dock of the pacemaker and then tightened down with the wrench. The atrial lead serial number was confirmed, the atrial lead was placed in the atrial dock of the pacemaker generator and it was tightened down with the wrench. I tried to dislodge the atrial lead and the ventricular lead, and was unable to do so. The pacemaker was then placed in the pacemaker pocket with care to place the OPERATIVE REPORT [id number] PATRIA POLLOCK leads posterior to the pacemaker generator. The pacemaker generator was then sutured to the underlying pectoralis fascia with a single 2-0 TiCron. I irrigated in the pacemaker pocket. There was no bleeding. The subdermis was approximated with interrupted 3-0 Vicryls. The skin was approximated with a running intracuticular 3-0 Vicryl. A sterile dressing was applied. The patient was then conveyed to the post-cardiac catheterization unit. TRANSINT:[id number] Voice Confirmation ID: [id number] DOCUMENT ID: [id number] MOHIT CASIANO MD at 1933 CC: DANIEL FREY MD [id number] DICTATION DATE: 04/13/19 1401 WAREHOUSE SPECIALIST: 04/13/19 1452 DIS IN 04/14/19 [facility] [address] [place] [address]
== END 2019-04-14 11:38 | disposition home or self-care (01) ==
LOC: OBSVTIME → D.CATH 11:07 → D.M2 13:40 → D.CATH 13:40 → D.M2 13:40 → OBSVTIME 13:50 → D.M2 04-14 11:38 → D.CATH 04-14 11:38
PROVIDERS: ATTEND Internal Medicine Interventional Cardiology
DX: I49.5 Sick sinus syndrome (principal)

== ENCOUNTER → 2019-05-02 12:38 | Outpatient (CLI) | payer MEDICARE ==
[2019-04-13 15:00] VITALS: BMI 29.9
[~2019-05-02 12:38] MED LIST changes: +OMEPRAZOLE20 M1 PO
== END | disposition home or self-care (01) ==
LOC: D.RT 12:38
PROVIDERS: ATTEND Internal Medicine Pulmonary Disease
DX: R06.09 Other forms of dyspnea (principal)

== ENCOUNTER → 2019-05-17 07:54 | Outpatient (CLI) | payer MEDICARE ==
[2019-04-13 15:00] VITALS: BMI 29.9
== END | disposition home or self-care (01) ==
LOC: D.RAD 07:54
PROVIDERS: ATTEND Internal Medicine Gastroenterology
DX: R13.10 Dysphagia, unspecified (principal); I10 Essential (primary) hypertension